=== PATIENT | male | born 1950 | race Hispanic/Latino ===

== ENCOUNTER 2017-07-25 13:45 | Emergency (ER) | payer BC, MEDICARE ==
[2017-07-25 13:59] VITALS: BMI 26.4
[2017-07-25 14:03] VITALS: BP 140/81; PULSE 66; TEMP 98
--- NOTE | 2017-07-25 14:14 | ED PDOC ---
Arrival/HPI - General Chief Complaint: Medical Clearance Time Seen by Provider: 07/25/17 14:06 Historian: Patient, Police - History of Present Illness Narrative History of Present Illness (Text): 07/25/17 14:05 Raphael Patton is a 67 year old male, whose past medical history includes Alzheimer's, who presents to the emergency department accompanied by patrol police sergeant who assisted him by bringing him in. According to patrol police sergeant, patient went up to him asking for help because he was confused on where he was due to his Alzheimer's. Patient informs walking in the street around the terminals. Police decided to bring him in for evaluation and daughter was also informed. Patient is currently asymptomatic. Time/Duration: Prior to Arrival Symptom Onset: Sudden Symptom Course: Improving Context: Street Past Medical History - Provider Review Nursing Documentation Reviewed: Yes - Cardiac Hx Cardiac Disorders: No - Pulmonary Hx Respiratory Disorders: No - Neurological Hx Alzheimer's Disease: Yes - HEENT Hx HEENT Disorder: No - Renal Hx Renal Disorder: No - Endocrine/Metabolic Hx Endocrine Disorders: No - Hematological/Oncological Hx Blood Disorders: No - Integumentary Hx Dermatological Disorder: No - Musculoskeletal/Rheumatological Hx Musculoskeletal Disorders: No - Gastrointestinal Hx Gastrointestinal Disorders: No - Genitourinary/Gynecological Hx Genitourinary Disorders: No - Psychiatric Hx Psychophysiologic Disorder: No Hx Substance Use: No Family/Social History - Physician Review Nursing Documentation Reviewed: Yes Family/Social History: Unknown Family HX Smoking Status: Never Smoked Hx Alcohol Use: No Hx Substance Use: No Allergies/Home Meds Allergies/Adverse Reactions: Allergies No Known Allergies Allergy (Verified 07/25/17 13:56) Home Medications: Home Meds Medication Instructions Recorded Confirmed Unobtainable 07/25/17 07/25/17 Review of Systems - Review of Systems Constitutional: Normal Eyes: Normal ENT: Normal Respiratory: Normal Cardiovascular: Normal Gastrointestinal: Normal Genitourinary Male: Normal Musculoskeletal: Normal Skin: Normal Neurological: Other (confusion due to Alzheimer's ) Endocrine: Normal Hemo/Lymphatic: Normal Psychiatric: Normal Physical Exam Vital Signs Reviewed: Yes Vital Signs Temp Pulse Resp BP Pulse Ox 07/25/17 13:56 98.4 F 62 18 140/71 100 Temperature: Afebrile Blood Pressure: Normal Pulse: Regular Respiratory Rate: Normal Appearance: Positive for: Well-Appearing, Non-Toxic, Comfortable Pain Distress: None Mental Status: Positive for: Alert and Oriented X 3 - Systems Exam Head: Present: Atraumatic, Normocephalic Pupils: Present: PERRL Extroacular Muscles: Present: EOMI Conjunctiva: Present: Normal Mouth: Present: Moist Mucous Membranes Neck: Present: Normal Range of Motion Respiratory/Chest: Present: Clear to Auscultation, Good Air Exchange. No: Respiratory Distress, Accessory Muscle Use Cardiovascular: Present: Regular Rate and Rhythm, Normal S1, S2. No: Murmurs Abdomen: Present: Normal Bowel Sounds. No: Tenderness, Distention, Peritoneal Signs Lower Extremity: Present: Normal Inspection, NORMAL PULSES, Normal ROM, Capillary Refill < 2 s. No: Edema, Cyanosis, Tenderness, Swelling, Erythema, Deformity Neurological: Present: GCS=15, CN II-XII Intact, Speech Normal, Gait Normal Skin: Present: Warm, Dry, Normal Color. No: Rashes Psychiatric: Present: Alert, Oriented x 3, Normal Insight, Normal Concentration Medical Decision Making ED Course and Treatment: 07/25/17 14:30 Patient's daughter came in to the emergency department who explained her father is acting his normal self and there is nothing different. Daughter states she will take him home and look after him. Patient still remains asymptomatic and is ready for discharge. - PA / AMUSEMENT MACHINE MECHANIC / Resident Statement MD/DO has reviewed & agrees with the documentation as recorded. - Scribe Statement The provider has reviewed the documentation as recorded by the Scribe Honey [place] Provider Scribe Attestation: All medical record entries made by the Scribe were at my direction and personally dictated by me. I have reviewed the chart and agree that the record accurately reflects my personal performance of the history, physical exam, medical decision making, and the department course for this patient. I have also personally directed, reviewed, and agree with the discharge instructions and disposition. Disposition/Present on Arrival - Present on Arrival Any Indicators Present on Arrival: No History of DVT/PE: No History of Uncontrolled Diabetes: No Urinary Catheter: No History of Decub. Ulcer: No History Surgical Site Infection Following: None - Disposition Have Diagnosis and Disposition been Completed?: Yes Diagnosis: Dementia, Alzheimer's dementia Disposition: HOME/ ROUTINE Disposition Time: 14:45 Patient Plan: Discharge Condition: GOOD Discharge Instructions (ExitCare): Dementia (ED) Additional Instructions: Peter- Sorry that you and your family are dealing with all this. Return to us if any problems. Follow up with your regular doctors. Best- Dr. Prabhakar Melendez Referrals: [facility] Profile Req, [Primary Care Provider] - Follow up with primary Forms: [employer] (Namibian)
[2017-07-25 14:59] VITALS: RESP 18; O2SAT 99
== END 2017-07-25 14:53 | disposition home or self-care (01) ==
LOC: ED 13:45
DX: G30.9 Alzheimer's disease, unspecified (principal); F02.80 Dementia in other diseases classified elsewhere, unspecified severity, without behavioral disturbance, psychotic disturbance, mood disturbance, and anxiety

== ENCOUNTER 2018-03-25 13:26 | Emergency (ER) | payer BC, MEDICARE ==
[2018-03-25 13:32] VITALS: BP 128/65
[2018-03-25 13:35] VITALS: BMI 22.9
--- NOTE | 2018-03-25 13:54 | ED PDOC ---
Arrival/HPI - General Chief Complaint: Medical Clearance Time Seen by Provider: 03/25/18 13:30 Historian: Patient, EMS, Police - History of Present Illness Time/Duration: Prior to Arrival Symptom Course: Unchanged Severity Level: Mild Associated Symptoms (Text): 03/25/18 13:51 Patient reports that he went out for a little walk today and became lost and did not recognize anyone. He approached a air chipper and reported that he was lost to called EMS and brought the patient to the emergency department. After reviewing his old records he has had similar episodes in the past. He is awake alert comfortable and appears to be in no distress. He is oriented 1 only. A call has been placed to his daughter. He does not know where he lives or his address. He has no complaints. He denies cough congestion or URI. No chest pain or dyspnea. No abdominal pain or vomiting. No trauma. Past Medical History - Cardiac Hx Cardiac Disorders: No - Pulmonary Hx Respiratory Disorders: No - Neurological Hx Alzheimer's Disease: Yes - HEENT Hx HEENT Disorder: No - Renal Hx Renal Disorder: No - Endocrine/Metabolic Hx Endocrine Disorders: No - Hematological/Oncological Hx Blood Disorders: No - Integumentary Hx Dermatological Disorder: No - Musculoskeletal/Rheumatological Hx Musculoskeletal Disorders: No - Gastrointestinal Hx Gastrointestinal Disorders: No - Genitourinary/Gynecological Hx Genitourinary Disorders: No - Psychiatric Hx Psychophysiologic Disorder: No Hx Substance Use: No Family/Social History - Physician Review Nursing Documentation Reviewed: Yes Family/Social History: Unknown Family HX Smoking Status: Never Smoked Hx Alcohol Use: No Hx Substance Use: No Allergies/Home Meds Allergies/Adverse Reactions: Allergies No Known Allergies Allergy (Verified 03/25/18 13:35) Home Medications: Home Meds Medication Instructions Recorded Confirmed Unobtainable 07/25/17 03/25/18 Review of Systems - Physician Review All systems were reviewed & negative as marked: Yes - Review of Systems Constitutional: Normal Respiratory: Normal Cardiovascular: Normal Gastrointestinal: Normal Musculoskeletal: Normal Neurological: Normal Physical Exam Vital Signs Temp Pulse Resp BP Pulse Ox 03/25/18 13:31 98.5 F 73 18 128/65 100 Temperature: Afebrile Blood Pressure: Normal Pulse: Regular Respiratory Rate: Normal Appearance: Positive for: Well-Appearing, Non-Toxic, Comfortable Pain Distress: None Mental Status: No: Alert and Oriented X 3 (oriented 1 only) Finger Stick Blood Glucose: 129 - Systems Exam Head: Present: Atraumatic, Normocephalic Pupils: Present: PERRL Extroacular Muscles: Present: EOMI Conjunctiva: Present: Normal Mouth: Present: Moist Mucous Membranes Pharnyx: No: ERYTHEMA, EXUDATE, TONSILS ENLARGED Neck: Present: Normal Range of Motion Respiratory/Chest: Present: Clear to Auscultation, Good Air Exchange. No: Respiratory Distress, Accessory Muscle Use Cardiovascular: Present: Regular Rate and Rhythm, Normal S1, S2. No: Murmurs Abdomen: No: Tenderness, Distention, Peritoneal Signs Upper Extremity: Present: Normal Inspection. No: Cyanosis, Edema Lower Extremity: Present: Normal Inspection. No: Edema Neurological: Present: GCS=15, CN II-XII Intact, Speech Normal, Motor Func Grossly Intact, Normal Sensory Function, Normal Cerebellar Funct, Gait Normal Skin: Present: Warm, Dry, Normal Color. No: Rashes Medical Decision Making ED Course and Treatment: 03/25/18 13:54 Patient's daughter will be here as soon as possible. 03/25/18 14:27 Patient's home health aide is here and reports that he is in his usual mental state. She will take him home today. Disposition/Present on Arrival - Present on Arrival Any Indicators Present on Arrival: No History of DVT/PE: No History of Uncontrolled Diabetes: No Urinary Catheter: No History of Decub. Ulcer: No History Surgical Site Infection Following: None - Disposition Have Diagnosis and Disposition been Completed?: Yes Diagnosis: Dementia Disposition: HOME/ ROUTINE Disposition Time: 14:27 Patient Plan: Discharge Condition: GOOD Discharge Instructions (ExitCare): Dementia (DC) Forms: [employer] (Urdu)
[2018-03-25 14:29] VITALS: PULSE 77; RESP 19; TEMP 98; O2SAT 95
== END 2018-03-25 14:29 | disposition home or self-care (01) ==
LOC: ED 13:26
DX: F02.80 Dementia in other diseases classified elsewhere, unspecified severity, without behavioral disturbance, psychotic disturbance, mood disturbance, and anxiety (principal); G30.9 Alzheimer's disease, unspecified

== ENCOUNTER 2018-08-22 10:49 | Inpatient (IN) | payer BC, MEDICARE ==
--- NOTE | 2018-08-22 11:13 | ED PDOC ---
Arrival/HPI - General Chief Complaint: Trauma Time Seen by Provider: 08/22/18 10:56 Historian: Patient - History of Present Illness Narrative History of Present Illness (Text): 08/22/18 11:11 A 68 year old male, whose past medical history includes Alzheimer's disease and dementia, presents to the emergency department for s/p fall out of bed. Baseline confused secondary to dementia. Patient is unclear as to what happened to him. Daughter is currently on her way to the ER. Patient has no complaints. Limited HPI and ROS secondary to dementia and baseline confusion. Past Medical History - Provider Review Nursing Documentation Reviewed: Yes - Cardiac Hx Cardiac Disorders: No - Pulmonary Hx Respiratory Disorders: No - Neurological Hx Alzheimer's Disease: Yes - HEENT Hx HEENT Disorder: No - Renal Hx Renal Disorder: No - Endocrine/Metabolic Hx Endocrine Disorders: No - Hematological/Oncological Hx Blood Disorders: No - Integumentary Hx Dermatological Disorder: No - Musculoskeletal/Rheumatological Hx Musculoskeletal Disorders: No - Gastrointestinal Hx Gastrointestinal Disorders: No - Genitourinary/Gynecological Hx Genitourinary Disorders: No - Psychiatric Hx Psychophysiologic Disorder: No Hx Substance Use: No Family/Social History - Physician Review Nursing Documentation Reviewed: Yes Family/Social History: No Known Family HX Smoking Status: Never Smoked Hx Alcohol Use: No Hx Substance Use: No Allergies/Home Meds Allergies/Adverse Reactions: Allergies No Known Allergies Allergy (Verified 03/25/18 13:35) Home Medications: Home Meds Medication Instructions Recorded Confirmed FLUoxetine [Fluoxetine HCl] 20 mg PO DAILY 08/22/18 08/22/18 Memantine HCl [Memantine HCl ER] 28 mg DAILY 08/22/18 08/22/18 RX: QUEtiapine [SEROquel] 300 mg DAILY 08/22/18 08/22/18 RX: traZODone [Desyrel] 50 mg PO BID 08/22/18 08/22/18 Review of Systems - Review of Systems Systems not reviewed;Unavailable: Dementia Physical Exam Mental Status: Positive for: Confused (baseline secondary to dementia) - Systems Exam Head: Present: Atraumatic, Normocephalic Pupils: Present: PERRL Extroacular Muscles: Present: EOMI Conjunctiva: Present: Normal Mouth: No: Normal Lips (swelling to upper lip s/p fall.) Neck: Present: Normal Range of Motion Respiratory/Chest: Present: Clear to Auscultation, Good Air Exchange. No: Respiratory Distress, Accessory Muscle Use Cardiovascular: Present: Regular Rate and Rhythm, Normal S1, S2. No: Murmurs Abdomen: No: Tenderness, Distention, Peritoneal Signs Back: Present: Normal Inspection Upper Extremity: Present: Normal Inspection. No: Cyanosis, Edema Lower Extremity: Present: Normal Inspection. No: Edema Neurological: Present: GCS=15, CN II-XII Intact, Speech Normal Skin: Present: Warm, Dry, Normal Color. No: Rashes Psychiatric: Present: Alert, Oriented x 3, Normal Insight, Normal Concentration Medical Decision Making ED Course and Treatment: 08/22/18 11:13 Impression: 68 year old male with s/p fall/ams daughter staets pt mroe confused than baseline. will eval for sepsis intracranil metabolic infectious etioloyg Plan: -- EKG -- Head CT -- Chest X-ray -- Labs -- Venous Blood Gas -- Pelvis X-Ray -- Urinalysis -- Reassess and disposition Prior Visits: Notes and results from previous visits were reviewed. Patient was last here on 03/25/2018 for AMS. Patient was discharged home. Progress Notes: EKG: Ordered, reviewed, and independently interpreted the EKG. Rate : 61 BPM Rhythm : NSR Interpretation : Non-specific ST- and T- wave changes. Comparison : No previous EKG for comparison. 08/22/2018 12:[address] IMPRESSION: No acute intracranial findings. Dictator: Miki Cervantes MD 08/22/18 17:[address] neg. case discussed [facility] (family states they have no pmd). accepted. urine pending - RAD Interpretation Radiology Orders: 08/22/18 11:08 HEAD W/O CONTRAST [CT] Stat CHEST PORTABLE [RAD] Stat PELVIS ONE VIEW [RAD] Stat - Scribe Statement The provider has reviewed the documentation as recorded by the Kanika Narayan Provider Scribe Attestation: All medical record entries made by the Scribe were at my direction and personally dictated by me. I have reviewed the chart and agree that the record accurately reflects my personal performance of the history, physical exam, medical decision making, and the department course for this patient. I have also personally directed, reviewed, and agree with the discharge instructions and disposition. Disposition/Present on Arrival - Present on Arrival Any Indicators Present on Arrival: No History of DVT/PE: No History of Uncontrolled Diabetes: No Urinary Catheter: No History of Decub. Ulcer: No History Surgical Site Infection Following: None - Disposition Have Diagnosis and Disposition been Completed?: Yes Diagnosis: Altered mental status Disposition: HOSPITALIZED Disposition Time: 14:00 Condition: STABLE
[2018-08-22 11:44] LABS: BASO # 0.03 K/mm3 (0.0-2.0); BASO % 0.4 % (0.0-3.0); EOS # 0.1 (0.0-0.7); HEMOGLOBIN 15.6 g/dL (14.0-18.0); LYMPH # 1.7 (1.2-3.4); LYMPH % 25.5 % (22.0-35.0); MEAN CELL VOLUME 97.9 fl (80.0-105.0); MEAN CORPUSCULAR HEMOGLOBIN 32.8 pg (25.0-35.0); MEAN CORPUSCULAR HGB CONC 33.5 g/dl (31.0-37.0); MEAN PLATELET VOLUME 9.4 fl (7.0-11.0); MONO # 0.5 (0.1-0.6); MONO % 6.6 % (1.0-6.0); RBC 4.76 10^6/uL (3.5-6.1); RED CELL DISTRIBUTION WIDTH 13.4 % (11.5-14.5); WHITE BLOOD COUNT 6.8 10^3/uL (4.5-11.0)
[2018-08-22 11:48] LABS: ALB/GLOB RATIO 1.1 (1.1-1.8); ALBUMIN 3.8 g/dL (3.0-4.8); ALT/SGPT 17 U/L (7-56); AST/SGOT 19 U/L (17-59); BLOOD UREA NITROGEN 19 mg/dL (7-21); CALCIUM 9.7 mg/dL (8.4-10.5); GFR NON-AFRICAN AMERICAN 55
[2018-08-22 11:49] LABS: INR 1.15; PARTIAL THROMBOPLASTIN TIME 33.6 Seconds (26.9-38.3)
[2018-08-22 11:59] LABS: TROPONIN I < 0.01 ng/mL
[2018-08-22 12:06] LABS: VENOUS BLOOD GAS BASE EXCESS 1.9 mmol/L (0.0-2.0); VENOUS BLOOD GAS PO2 25 mm/Hg (30-55); VENOUS BLOOD PH 7.33 (7.32-7.43)
--- NOTE | 2018-08-22 12:26 | CT ---
Date of service: 08/22/2018 PROCEDURE: CT HEAD WITHOUT CONTRAST. HISTORY: ams/fall COMPARISON: None available. TECHNIQUE: Axial computed tomography images were obtained through the head/brain without intravenous contrast. Radiation dose: Total exam DLP = 837.2 mGy-cm. This CT exam was performed using one or more of the following dose reduction techniques: Automated exposure control, adjustment of the mA and/or kV according to patient size, and/or use of iterative reconstruction technique. FINDINGS: HEMORRHAGE: No intracranial hemorrhage. BRAIN: No mass effect or edema. There is moderate atrophy. No acute intracranial findings VENTRICLES: Unremarkable. No hydrocephalus. CALVARIUM: Unremarkable. PARANASAL SINUSES: Unremarkable as visualized. No significant inflammatory changes. MASTOID AIR CELLS: Unremarkable as visualized. No inflammatory changes. OTHER FINDINGS: None. IMPRESSION: No acute intracranial findings
--- NOTE | 2018-08-22 12:44 | RAD ---
Date of service: 08/22/2018 HISTORY: ams COMPARISON: 10/05/2013 FINDINGS: LUNGS: No active pulmonary disease. PLEURA: No significant pleural effusion identified, no pneumothorax apparent. CARDIOVASCULAR: No aortic atherosclerotic calcification present. Normal cardiac size. No pulmonary vascular congestion. OSSEOUS STRUCTURES: No significant abnormalities. VISUALIZED UPPER ABDOMEN: Normal. OTHER FINDINGS: None. IMPRESSION: No active disease.
--- NOTE | 2018-08-22 12:45 | RAD ---
Date of service: 08/22/2018 PROCEDURE: Radiographs of the pelvis. HISTORY: fall COMPARISON: None. FINDINGS: BONES: Pelvic Bones: Unremarkable. Hips: Grossly unremarkable. JOINTS: Sacroiliac Joints: Unremarkable. Pubic Symphysis: Unremarkable. OTHER FINDINGS: None. IMPRESSION: Unremarkable radiographs of the pelvis.
[2018-08-22 17:37] VITALS: BMI 24.3
[2018-08-22] MEDS ORDERED: Pneumococcal 23-Valent Vaccine IM ONE (17:37)
[2018-08-22] MEDS ORDERED: Influenza Vaccine 60 mcg/0.5 mL SYR (4YR UP) IM ONE (17:37)
--- NOTE | 2018-08-22 23:26 | CARD ---
APPROVED REPORT Date of service: 08/22/2018 EKG Measurement Heart [id number] MD [id number] <Conclusion> Normal sinus rhythm Low voltage QRS Nonspecific T wave abnormality Abnormal ECG
--- NOTE | 2018-08-23 12:28 | CP.PCM.PCO ---
Physician Communication Note - Physician Communication Note Physician Communication Note: xanax was changed to PRN, will f/u on pt tomorrow
[2018-08-23 16:39] LABS: FOLATE 7.6 ng/mL
--- NOTE | 2018-08-24 08:16 | HP ---
DATE OF EXAM: 08/23/2018 CHIEF COMPLAINT AND HISTORY OF PRESENT ILLNESS: This is a 68-year-old male who has come in to the hospital after he had a fall out of bed. He had underlying Alzheimer's. He has confusion overnight. He was pulling out his IV and he was trying to get up. He was placed on one-to-one and also placed on restraints to help with his safety. He is not able to give much information. REVIEW OF SYSTEMS: Limited. PAST MEDICAL HISTORY: Dementia, but otherwise unknown. Unable to ask. Possible history of dyslipidemia and diverticulosis. SOCIAL HISTORY: Unable to ask. The patient is a Vet of the [place] war. FAMILY HISTORY: Unable to assess, because of the patient's confusion. PHYSICAL EXAMINATION VITAL SIGNS: Temperature is 98.1, pulse of 70, blood pressure 108/76, respirations 18, O2 saturation is 98%. Height is 5 feet 8 inches, weight is 160 pounds, BMI is 24. GENERAL: The patient is lying in bed, comfortable, and in no acute distress. HEENT: Atraumatic and normocephalic. Anicteric sclerae. Moist mucosa. Mcnair conjunctivae. No oral lesions. NECK: No JVD, anterior and posterior adenopathy, thyromegaly, or bruits. CARDIOVASCULAR: S1 and S2 regular. No murmurs, rubs or gallops. LUNGS: Clear to auscultation bilaterally. No wheezes, rales, or rhonchi. ABDOMEN: Bowel sounds are positive. Soft, nontender and nondistended. No hepatosplenomegaly. No rebound and no guarding EXTREMITIES: No cyanosis, clubbing, or edema. NEUROLOGIC: No facial asymmetry. The patient is able to move all extremities 5/5 power. PSYCHIATRIC: The patient is not able to answer much questions, unable to do a psychiatric evaluation. GENITOURINARY: No CVA tenderness. VASCULAR: 2+ pulses in the carotid pulses and pedal pulses. SKIN: No erythema or nodules SPINE: Shows normal curvature. LABORATORY DATA: White count of 6.8, hemoglobin 15.6, INR is 1.1. Chemistry shows sodium was 139, potassium is 3.6, creatinine is 1.3, troponin is 0.01. ASSESSMENT: 1. Fall. 2. Dementia, Alzheimer's type. 3. Delirium. PLAN: The patient is going to continue on trazodone. He is on memantine, he is going to continue. We will continue the patient's Seroquel and Prozac. The patient is going to be on heart healthy diet. I will get psychiatry to evaluate the patient. We will order TSH and B12. The patient may need half-way placement, but we will speak to the patient's family. Humberto Espinal MD
--- NOTE | 2018-08-24 13:08 | CP.PCM.PN ---
<Garry Foster - Last Filed: 08/24/18 13:03> Subjective - Date & Time of Evaluation Date of Evaluation: 08/24/18 Time of Evaluation: 07:50 - Subjective Subjective: Medicine progress note for Dr Espinal: Patient seen and examined at bedside. No acute events overnight. Patient appears to be drowsy this morning. However he denies any complaints at this time. 12 point ROS performed however limited due to dementia Objective - Vital Signs/Intake and Output Vital Signs (last 24 hours): Temp Pulse Resp BP Pulse Ox 98 F 82 18 117/78 96 08/24/18 06:00 08/24/18 06:00 08/24/18 06:00 08/24/18 06:00 08/24/18 06:00 - Medications Medications: Current Medications Alprazolam (Xanax) 0.25 mg PO BID PRN; Protocol PRN Reason: Restlessness Stop: 08/30/18 11:01 Fluoxetine HCl (Prozac) 20 mg PO DAILY [facility] Last Admin: 08/24/18 10:53 Dose: 20 mg Memantine Hcl [ Memantine Hcl Er] 28 Mg 28 mg PO DAILY [facility] Last Admin: 08/24/18 10:53 Dose: 28 mg Quetiapine Fumarate (Seroquel) 300 mg PO DAILY [facility]; Protocol Last Admin: 08/24/18 10:53 Dose: 300 mg Trazodone HCl (Desyrel) 50 mg PO BID [facility] Last Admin: 08/24/18 10:53 Dose: 50 mg - Labs Labs: 08/22/18 11:25 08/22/18 11:25 PT 13.0 SECONDS (9.4-12.5) H 08/22/18 11:25 INR 1.15 08/22/18 11:25 APTT 33.6 Seconds (26.9-38.3) 08/22/18 11:25 - Constitutional Appears: No Acute Distress - Head Exam Head Exam: ATRAUMATIC, NORMOCEPHALIC - Eye Exam Eye Exam: EOMI - ENT Exam ENT Exam: Mucous Membranes Moist - Respiratory Exam Respiratory Exam: Clear to Ausculation Bilateral. absent: Rales, Wheezes - Cardiovascular Exam Cardiovascular Exam: REGULAR RHYTHM, +S1, +S2 - GI/Abdominal Exam GI & Abdominal Exam: Soft. absent: Tenderness - Extremities Exam Extremities Exam: absent: Calf Tenderness, Pedal Edema - Neurological Exam Neurological Exam: Alert, Awake, Oriented x3 - Psychiatric Exam Psychiatric exam: Normal Mood - Skin Skin Exam: Dry, Warm Assessment and Plan - Assessment and Plan (Free Text) Assessment: 1. 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 Delirium CT of the head, chest x-ray, pelvic x-ray all have been negative. Patient was placed on Xanax 0.25 mg twice daily PRN by psychiatry. Follow-up further psychiatric recommendations. Continue with his Prozac, Seroquel, and trazodone. Continue with memantin for his dementia. Patient is still a little confused today and will continue to monitor tomorrow. Follow-up social work and family regarding placement upon discharge. Case and plan was reviewed and discussed with Dr. Espinal. <Humberto Espinal S - Last Filed: 08/24/18 20:20> Objective - Vital Signs/Intake and Output Vital Signs (last 24 hours): Temp Pulse Resp BP Pulse Ox 98.1 F 84 18 102/62 97 08/24/18 14:00 08/24/18 14:00 08/24/18 14:00 08/24/18 14:00 08/24/18 14:00 - Medications Medications: Current Medications Alprazolam (Xanax) 0.25 mg PO BID PRN; Protocol PRN Reason: Restlessness Stop: 08/30/18 11:01 Fluoxetine HCl (Prozac) 20 mg PO DAILY [facility] Last Admin: 08/24/18 10:53 Dose: 20 mg Memantine Hcl [ Memantine Hcl Er] 28 Mg 28 mg PO DAILY [facility] Last Admin: 08/24/18 10:53 Dose: 28 mg Quetiapine Fumarate (Seroquel) 50 mg PO [facility]; Protocol Zaleplon (Sonata) 5 mg PO HS [facility] - Labs Labs: 08/22/18 11:25 08/22/18 11:25 PT 13.0 SECONDS (9.4-12.5) H 08/22/18 11:25 INR 1.15 08/22/18 11:25 APTT 33.6 Seconds (26.9-38.3) 08/22/18 11:25 Assessment and Plan - Assessment and Plan (Free Text) Assessment: Pt seen and examined by me. I have reviewed the note of the medical imaging director and I agree with it. I have discussed the assessment and plan with the resident. I have reviewed the medications and the last labs. Pt with Deleirum and has been started on Xanax. I spoke to Dr Rajan from psych to plan on the treatment options. Will continue with other medications.
--- NOTE | 2018-08-24 20:17 | CON ---
DATE OF CONSULTATION: 08/24/2018 HISTORY OF PRESENT ILLNESS: In short, the patient is a 68-year-old male with a reported history of an advanced dementia. The patient was admitted on the medical side for evaluation of status post fall as well as delirium. This program writer was involved into the patient's care for evaluation of agitation and possible medication management. This program writer evaluated the patient today. There is no option to have meaningful conversation. The patient was lying down, not willing to talk as per One-to-One. The patient did not have agitation or aggression so far. The patient refused to eat. VITAL SIGNS: Stable. Temperature 98.0, pulse is 82, blood pressure 117/78, respirations 18, oxygen saturation is 96. MEDICATIONS: Reviewed. The patient is on Xanax as needed 0.25 mg twice a day. The patient is on Prozac, Seroquel 300 mg daily, trazodone 50 mg twice a day. LABS: Reviewed. Coagulation reviewed. Chemistry reviewed. The patient has power of patent prosecution attorney, his , Valarie, phone number is [phone]. Medical student was asked to call for collateral information. As per collateral information, the patient suffered from PTSD, but never been hospitalized into the psychiatric inpatient unit. Seroquel as well as trazodone and Prozac were prescribed by Dr. Lee, neurologist. The patient was not able to communicate at home either. Family and power of patent prosecution attorney looking for mood to be stable and willing for this program writer to adjust medications. Meanwhile, this program writer would suggest to decrease the dose of Seroquel, discontinue trazodone, Xanax will left. This program writer would implement Sonata at the nighttime for insomnia. This program writer also had prolonged conversation with Dr. Espinal. Medications as well as treatment plan were discussed in detail. MENTAL STATUS EXAMINATION: The patient presented to be withdrawn, flat affect, not willing to talk, and as per the patient's family, this is the patient's baseline. IMPRESSION: Advanced dementia, delirium due to general medical condition. PLAN: Seroquel was decreased to 50 mg twice a day. Also trazodone was discontinued. Sonata was started at the nighttime. Prozac 20 mg will be continued. We will follow up and advise accordingly. One-to-One should be continued. Should you have any questions, give me a call back. Thank you very much for letting me participate in the care of your patient. Mohini Eldridge MD
[2018-08-25 06:45] VITALS: BP 125/76; PULSE 60; TEMP 98.2
[2018-08-25 07:43] VITALS: RESP 18; O2SAT 125
--- NOTE | 2018-08-25 10:05 | CP.PCM.DIS ---
<Garry Foster - Last Filed: 08/25/18 11:41> Provider - Provider Date of Admission: 08/22/18 12:37 Attending physician: Humberto Espinal MD Consults: 08/22/18 17:00 Social Work Referral Routine Comment: family needs guidance on care for patient Physician Instructions: Reason For Exam: assess 08/22/18 17:37 Case Management Referral Routine Comment: Physician Instructions: Reason For Exam: Reason for Referral: Discharge Planning 08/23/18 10:57 Consult [Physician Consult] Routine Comment: Consulting Provider: Mohini Eldridge Consulting Physician: Mohini Eldridge Reason for Consult: agitation with dementia Time Spent in preparation of Discharge (in minutes): 45 Hospital Course - Lab Results Lab Results: Most Recent Lab Values WBC 6.8 10^3/uL (4.5-11.0) 08/22/18 11:25 RBC 4.76 10^6/uL (3.5-6.1) 08/22/18 11:25 Hgb 15.6 g/dL (14.0-18.0) 08/22/18 11:25 Hct 46.6 % (42.0-52.0) 08/22/18 11:25 MCV 97.9 fl (80.0-105.0) 08/22/18 11:25 MCH 32.8 pg (25.0-35.0) 08/22/18 11:25 MCHC 33.5 g/dl (31.0-37.0) 08/22/18 11:25 RDW 13.4 % (11.5-14.5) 08/22/18 11:25 Plt Count 247 10^3/uL (120.0-450.0) 08/22/18 11:25 MPV 9.4 fl (7.0-11.0) 08/22/18 11:25 Neut % (Auto) 65.5 % (50.0-68.0) 08/22/18 11:25 Lymph % (Auto) 25.5 % (22.0-35.0) 08/22/18 11:25 [place] % (Auto) 6.6 % (1.0-6.0) H 08/22/18 11:25 Eos % (Auto) 2.0 % (1.5-5.0) 08/22/18 11:25 Baso % (Auto) 0.4 % (0.0-3.0) 08/22/18 11:25 Lymph # (Auto) 1.7 (1.2-3.4) 08/22/18 11:25 [place] # (Auto) 0.5 (0.1-0.6) 08/22/18 11:25 Eos # (Auto) 0.1 (0.0-0.7) 08/22/18 11:25 Baso # (Auto) 0.03 K/mm3 (0.0-2.0) 08/22/18 11:25 Absolute Neuts (auto) 4.47 (1.4-6.5) 08/22/18 11:25 PT 13.0 SECONDS (9.4-12.5) H 08/22/18 11:25 INR 1.15 08/22/18 11:25 APTT 33.6 Seconds (26.9-38.3) 08/22/18 11:25 pO2 25 mm/Hg (30-55) L 08/22/18 11:45 VBG pH 7.33 (7.32-7.43) 08/22/18 11:45 VBG pCO2 55.0 (40-60) 08/22/18 11:45 VBG HCO3 29.0 mmol/l (21-28) H 08/22/18 11:45 VBG Total CO2 30.7 mmol.L (22-28) H 08/22/18 11:45 VBG O2 Sat (Calc) 52.2 % (40-65) 08/22/18 11:45 VBG Base Excess 1.9 mmol/L (0.0-2.0) 08/22/18 11:45 VBG Potassium 3.4 mmol/L (3.6-5.2) L 08/22/18 11:45 Sodium 139.0 mmol/L (132-148) 08/22/18 11:45 Chloride 105.0 mmol/L (98-107) 08/22/18 11:45 Glucose 82 mg/dl (75-110) 08/22/18 11:45 Lactate 1.9 mmol/L (0.7-2.1) 08/22/18 11:45 FiO2 21.0 % 02/09/19 11:45 Crit Value Called By Mrp 08/22/18 11:45 Blood Gas Notified Time 1209 08/22/18 11:45 Sodium 139 mmol/L (132-148) 08/22/18 11:25 Potassium 3.6 mmol/L (3.6-5.0) 08/22/18 11:25 Chloride 106 mmol/L (98-107) 08/22/18 11:25 Carbon Dioxide 29 mmol/L (21-33) 08/22/18 11:25 Anion Gap 9 (10-20) L 08/22/18 11:25 BUN 19 mg/dL (7-21) 08/22/18 11:25 Creatinine 1.3 mg/dl (0.8-1.5) 08/22/18 11:25 Est GFR ( Amer) > 60 08/22/18 11:25 Est GFR (Non-Af Amer) 55 08/22/18 11:25 POC Glucose (mg/dL) 96 mg/dL (65-110) 08/22/18 11:08 Random Glucose 94 mg/dL (70-110) 08/22/18 11:25 Calcium 9.7 mg/dL (8.4-10.5) 08/22/18 11:25 Magnesium 2.1 mg/dL (1.7-2.2) 08/22/18 11:25 Total Bilirubin 1.3 mg/dL (0.2-1.3) 08/22/18 11:25 AST 19 U/L (17-59) 08/22/18 11:25 ALT 17 U/L (7-56) 08/22/18 11:25 Alkaline Phosphatase 75 U/L (38-126) 08/22/18 11:25 Lactate Dehydrogenase 360 U/L (333-699) 08/22/18 11:25 Total Creatine Kinase 33 U/L (35-230) L 08/22/18 11:25 Troponin I < 0.01 ng/mL 08/22/18 11:25 Total Protein 7.2 g/dL (5.8-8.3) 08/22/18 11:25 Albumin 3.8 g/dL (3.0-4.8) 08/22/18 11:25 Globulin 3.3 gm/dL 08/22/18 11:25 Albumin/Globulin Ratio 1.1 (1.1-1.8) 08/22/18 11:25 Vitamin B12 401 pg/mL (239-931) 08/23/18 11:00 Folate 7.6 ng/mL 08/23/18 11:00 TSH 3rd Generation 2.10 mIU/mL (0.46-4.68) 08/23/18 11:00 Venous Blood Potassium 3.4 mmol/L (3.6-5.2) L 08/22/18 11:45 - Hospital Course Hospital Course: 68-year-old male with past medical history of Alzheimer's disease and dementia presents to the ED following a fall. Patient's also states that patient is more confused recently and would like her medications to be adjusted. In the ED CT of the head, chest x-ray, pelvic x-ray were all found to be negative. Psychiatry was consulted. Patient was brought to the floor for close observation. Psychiatry adjusted the medications by decreasing the Seroquel, adding Xanax as needed, discontinuing trazodone, and continuing Prozac. Today the patient is feeling better less confused and more alert. Spoke to the patient's in detail regarding the medication changes recommended by the psychiatry. Patient's prefers for him to go home. As per case management physical therapy will be set up for the home. Dx: 1. 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 Delirium Discharge Exam - Head Exam Head Exam: ATRAUMATIC, NORMOCEPHALIC - Eye Exam Eye Exam: EOMI - Respiratory Exam Respiratory Exam: Clear to PA & Lateral. absent: Rales, Rhonchi, Wheezes - Cardiovascular Exam Cardiovascular Exam: RRR, +S1, +S2 - GI/Abdominal Exam GI & Abdominal Exam: Normal Bowel Sounds, Soft. absent: Distended - Neurological Exam Neurological exam: Alert, Oriented x3 - Psychiatric Exam Psychiatric exam: Normal Mood - Skin Skin Exam: Dry, Warm Discharge Plan - Discharge Medications Prescriptions: RX: QUEtiapine [Seroquel] 50 mg PO AMHS #60 tab RX: Zaleplon [Sonata] 5 mg PO HS #30 cap RX: ALPRAZolam [Xanax] 0.25 mg PO BID PRN #60 tab PRN Reason: Restlessness - Follow Up Plan Condition: IMPROVED Disposition: HOME/ ROUTINE Patient education suggested?: Yes Instructions: Altered Mental Status (DC), Flu Vaccine, Altered Mental Status (GEN) Additional Instructions: Your medications were readjusted, take your medications as prescribed If your symptoms are recurred come back to the ED Follow-up with your PMD within 3 days Follow-up with psychiatrist within 1 week <Humberto Espinal - Last Filed: 08/25/18 14:27> Provider - Provider Date of Admission: 08/22/18 12:37 Attending physician: Humberto Espinal MD Consults: 08/22/18 17:00 Social Work Referral Routine Comment: family needs guidance on care for patient Physician Instructions: Reason For Exam: assess 08/22/18 17:37 Case Management Referral Routine Comment: Physician Instructions: Reason For Exam: Reason for Referral: Discharge Planning 08/23/18 10:57 Consult [Physician Consult] Routine Comment: Consulting Provider: Mohini Eldridge Consulting Physician: Mohini Eldridge Reason for Consult: agitation with dementia Hospital Course - Lab Results Lab Results: Most Recent Lab Values WBC 6.8 10^3/uL (4.5-11.0) 08/22/18 11:25 RBC 4.76 10^6/uL (3.5-6.1) 08/22/18 11:25 Hgb 15.6 g/dL (14.0-18.0) 08/22/18 11:25 Hct 46.6 % (42.0-52.0) 08/22/18 11:25 MCV 97.9 fl (80.0-105.0) 08/22/18 11:25 MCH 32.8 pg (25.0-35.0) 08/22/18 11:25 MCHC 33.5 g/dl (31.0-37.0) 08/22/18 11:25 RDW 13.4 % (11.5-14.5) 08/22/18 11:25 Plt Count 247 10^3/uL (120.0-450.0) 08/22/18 11:25 MPV 9.4 fl (7.0-11.0) 08/22/18 11:25 Neut % (Auto) 65.5 % (50.0-68.0) 08/22/18 11:25 Lymph % (Auto) 25.5 % (22.0-35.0) 08/22/18 11:25 [place] % (Auto) 6.6 % (1.0-6.0) H 08/22/18 11:25 Eos % (Auto) 2.0 % (1.5-5.0) 08/22/18 11:25 Baso % (Auto) 0.4 % (0.0-3.0) 08/22/18 11:25 Lymph # (Auto) 1.7 (1.2-3.4) 08/22/18 11:25 [place] # (Auto) 0.5 (0.1-0.6) 08/22/18 11:25 Eos # (Auto) 0.1 (0.0-0.7) 08/22/18 11:25 Baso # (Auto) 0.03 K/mm3 (0.0-2.0) 08/22/18 11:25 Absolute Neuts (auto) 4.47 (1.4-6.5) 08/22/18 11:25 PT 13.0 SECONDS (9.4-12.5) H 08/22/18 11:25 INR 1.15 08/22/18 11:25 APTT 33.6 Seconds (26.9-38.3) 08/22/18 11:25 pO2 25 mm/Hg (30-55) L 08/22/18 11:45 VBG pH 7.33 (7.32-7.43) 08/22/18 11:45 VBG pCO2 55.0 (40-60) 08/22/18 11:45 VBG HCO3 29.0 mmol/l (21-28) H 08/22/18 11:45 VBG Total CO2 30.7 mmol.L (22-28) H 08/22/18 11:45 VBG O2 Sat (Calc) 52.2 % (40-65) 08/22/18 11:45 VBG Base Excess 1.9 mmol/L (0.0-2.0) 08/22/18 11:45 VBG Potassium 3.4 mmol/L (3.6-5.2) L 08/22/18 11:45 Sodium 139.0 mmol/L (132-148) 08/22/18 11:45 Chloride 105.0 mmol/L (98-107) 08/22/18 11:45 Glucose 82 mg/dl (75-110) 08/22/18 11:45 Lactate 1.9 mmol/L (0.7-2.1) 08/22/18 11:45 FiO2 21.0 % 08/22/18 11:45 Crit Value Called By Mrp 08/22/18 11:45 Blood Gas Notified Time 1209 08/22/18 11:45 Sodium 139 mmol/L (132-148) 08/22/18 11:25 Potassium 3.6 mmol/L (3.6-5.0) 08/22/18 11:25 Chloride 106 mmol/L (98-107) 08/22/18 11:25 Carbon Dioxide 29 mmol/L (21-33) 08/22/18 11:25 Anion Gap 9 (10-20) L 08/22/18 11:25 BUN 19 mg/dL (7-21) 08/22/18 11:25 Creatinine 1.3 mg/dl (0.8-1.5) 08/22/18 11:25 Est GFR ( Amer) > 60 08/22/18 11:25 Est GFR (Non-Af Amer) 55 08/22/18 11:25 POC Glucose (mg/dL) 96 mg/dL (65-110) 08/22/18 11:08 Random Glucose 94 mg/dL (70-110) 08/22/18 11:25 Calcium 9.7 mg/dL (8.4-10.5) 08/22/18 11:25 Magnesium 2.1 mg/dL (1.7-2.2) 08/22/18 11:25 Total Bilirubin 1.3 mg/dL (0.2-1.3) 08/22/18 11:25 AST 19 U/L (17-59) 08/22/18 11:25 ALT 17 U/L (7-56) 08/22/18 11:25 Alkaline Phosphatase 75 U/L (38-126) 08/22/18 11:25 Lactate Dehydrogenase 360 U/L (333-699) 08/22/18 11:25 Total Creatine Kinase 33 U/L (35-230) L 08/22/18 11:25 Troponin I < 0.01 ng/mL 08/22/18 11:25 Total Protein 7.2 g/dL (5.8-8.3) 08/22/18 11:25 Albumin 3.8 g/dL (3.0-4.8) 08/22/18 11:25 Globulin 3.3 gm/dL 08/22/18 11:25 Albumin/Globulin Ratio 1.1 (1.1-1.8) 08/22/18 11:25 Vitamin B12 401 pg/mL (239-931) 08/23/18 11:00 Folate 7.6 ng/mL 08/23/18 11:00 TSH 3rd Generation 2.10 mIU/mL (0.46-4.68) 08/23/18 11:00 Venous Blood Potassium 3.4 mmol/L (3.6-5.2) L 08/22/18 11:45 - Hospital Course Hospital Course: Patient was seen and examined by me. I have reviewed the note of the medical assistant instructor and have gone over the plan of care. I agree with the note. I have reviewed the medications and the last labs. Pt had a fall and was admitted to the hospital for evaluation. He had delirium and that has improved. He has underlying Dementia due to Alzh. Pt was seen by psych. would prefer that pt goes home per SW. He is more awake and less agitated this morning. He was eating breakfast when I evaluated him. Pt will be discharged home and f/u with PMD.
--- NOTE | 2018-08-25 18:38 | PN ---
DATE: 08/25/2018 FOLLOWUP NOTE SUBJECTIVE: The patient was seen today. The patient is nonverbal, was not able to provide any history to compare with description of the night at the time of admission. The patient presents much calmer. The patient did not have episodes of agitation or aggression. The patient is much calmer, appears to be not in any distress. As per report, the patient walked with PCP earlier. Discussed with the medical transcription so far the patient presented much better and family was happy with the result of adjustment of medications. This board writer reviewed vital signs which seems to be stable. Medications reviewed. The patient was on Xanax 0.25 mg twice a day as needed for restlessness. The patient was on Prozac. The patient's Seroquel was decreased and distributed into 50 mg twice a day. The patient also was started Sonata at the nighttime for insomnia and restlessness. Labs reviewed, seems to be within normal limits. MENTAL STATUS EXAMINATION: The patient laid down with eyes closed, was not participating in any interview. The patient has impaired insight and judgment. Impulses are better controlled. IMPRESSION: As per history, the patient has advance dementia and delirium. PLAN: This board writer would suggest continue current medications and current medical management. This board writer could feel that the patient might be improving further at home. So far, the patient deemed not to be in any imminent danger to self or others. This board writer will sign off. Should you have any questions, give me a call back. Thank you very much for letting me participate in care of your patient. Mohini Eldridge MD
== END 2018-08-25 17:38 | disposition home or self-care (01) | DRG 57 ==
LOC: ED 10:49 → ERH 12:37 → 5RNO 15:29
PROVIDERS: ADMIT Internal Medicine Nephrology; ATTEND Internal Medicine Nephrology
DX: G30.9 Alzheimer's disease, unspecified (principal); F02.81 Dementia in other diseases classified elsewhere, unspecified severity, with behavioral disturbance; F05 Delirium due to known physiological condition; Z78.1 Physical restraint status